=== PATIENT | male | born 1940 | race Caucasian/White ===

== ENCOUNTER 2016-09-18 13:37 | Outpatient (CLI) | payer MEDICARE | END 2016-09-18 13:38 | disposition home or self-care (01) | LOC: NC 13:37 | PROVIDERS: ATTEND Internal Medicine | DX: K44.9 Diaphragmatic hernia without obstruction or gangrene (principal); Z71.3 Dietary counseling and surveillance; K21.9 Gastro-esophageal reflux disease without esophagitis; N18.3 Chronic kidney disease, stage 3 (moderate); Z68.24 Body mass index [BMI] 24.0-24.9, adult ==

== ENCOUNTER 2016-09-18 21:00 | Emergency (ER) | payer MEDICARE ==
[2016-09-18] MEDS ORDERED: IOPAMIDOL 300 (61%) 150 ML VIAL IV ONE (21:01)
[2016-09-18] MEDS ORDERED: ONDANSETRON 4 MG/2ML 2 ML VIAL ONE (22:19)
[2016-09-18] MEDS ORDERED: SODIUM CHLORIDE 0.9% 1,000 ML ONE (22:19)
[2016-09-18] MEDS ORDERED: PANTOPRAZOLE SODIUM 40 MG VIAL IV ONE (22:38)
[2016-09-18] MEDS ORDERED: MORPHINE SULFATE 4 MG/ML SYRINGE ONE (22:38)
[2016-09-18 22:46] LABS: ABSOLUTE NEUTROPHIL COUNT 8.5 K/mm3 (1.8-7.7); BASO % 0.2 % (0.2-1.0); HEMATOCRIT 41.9 % (32.0-52.0); IMM NEUT% 0.3 % (0-1); LYMPH # 0.6 (1.0-4.8); LYMPH % 6.3 % (15-45); MEAN CELL VOLUME 89.3 fl (80.0-94.0); MEAN CORPUSCULAR HEMOGLOBIN 29.9 pg (27.0-31.0); MEAN CORPUSCULAR HGB CONC 33.4 g/dl (33.0-37.0); MEAN PLATELET VOLUME 10.1 fl (7.4-10.4); MONO # 0.6 (0.0-0.8); MONO % 5.7 % (4-12); NEUT % 87.5 % (43-75); PLATELET COUNT 275 K/mm3 (130-400); RED CELL DISTRIBUTION WIDTH 12.8 % (11.5-14.5); SPECIFIC GRAVITY 1.015 (1.001-1.030); URINE BILIRUBIN NEGATIVE (NEGATIVE); URINE BLOOD NEGATIVE (NEGATIVE); URINE GLUCOSE (UA) NEGATIVE (NEGATIVE); URINE LEUKOCYTE ESTERASE NEGATIVE (NEGATIVE); URINE NITRITE NEGATIVE (NEGATIVE); URINE PROTEIN 1+ (NEGATIVE); URINE UROBILINOGEN NORMAL (0-1 mg/dl)
[2016-09-18 22:51] LABS: URINE APPEARANCE SL CLOUDY; URINE COLOR DARK YELLOW
[2016-09-18 22:54] LABS: URINE RBC 0 /hpf
[2016-09-18 22:55] LABS: URINE AMORPHOUS SEDIMENT FEW; URINE BACTERIA 1+; URINE MUCUS 1+
[2016-09-18 23:00] LABS: ALB/GLOB RATIO 1.7 (>1.0); ALBUMIN 4.8 gm/dL (3.5-5.7); CALCIUM 10.5 mg/dL (8.6-10.3)
[2016-09-19] MEDS ORDERED: OXYMETAZOLINE HCL 0.05% 30 SPRAYS/BOT NS ONE (01:20)
[2016-09-19] MEDS ORDERED: LIDOCAINE 4% (PRES FREE) 5 ML AMP ONE (01:20)
[2016-09-19] MEDS ORDERED: SODIUM CHLORIDE 0.9% 1,000 ML ONE (02:01)
--- NOTE | 2016-09-19 08:07 | CT ---
CHEST ABDOMEN PELVIS CT WITH CONTRAST HISTORY: Abdominal pain and hiatal hernia. TECHNIQUE: Following the administration of 125 mL Isovue-300 intravenous contrast, contiguous axial images were acquired from the thoracic inlet to the ischial tuberosities. COMPARISON: Chest CT 08/28/2010. FINDINGS: THORAX LUNGS: No gross airspace abnormality. No pleural effusion. BARBARA AND MEDIASTINUM: No grossly enlarged lymph nodes. A right hilar lymph node measures 10 mm in size. There is moderate calcification of the coronary arteries with mixed plaque deposition of a nonectatic thoracic aorta. There is fluid identified within the distal esophagus with associated posterior mediastinal fluid. There is a complex left-sided paraesophageal hernia which primarily consists of the gastric body with associated wall enhancement, thickening, and fluid content. Associated obstruction is suspected. AXILLAE: No grossly enlarged lymph nodes. SUPRACLAVICULAR FOSSAE: No enlarged lymph nodes. ABDOMEN AND PELVIS LIVER AND SPLEEN: No focal lesion detected. ADRENAL GLANDS AND PANCREAS: Grossly unremarkable. KIDNEYS: 5 mm left renal cyst. No collecting system dilatation. GALLBLADDER: Present. BOWEL: Moderate fecal loading. Limited assessment of the distal colon due to decompression. Appendix is not seen. PELVIC ORGANS: No gross mass effect. FREE FLUID: No gross free fluid identified. ABDOMINOPELVIC LYMPH NODES: No abnormally enlarged lymph nodes identified. ABDOMINAL AORTA: Normal caliber. OSSEOUS STRUCTURES: Thoracolumbar disc degeneration with mild thoracic kyphosis. No dominant compression deformity. Osseous hemangioma of T12. Minor sclerosis along the left-sided pubis parasymphyseal region, possibly degenerative. Prominent canal stenosis at the L2-3 through L4-5 levels. IMPRESSION: 1. Worsening of paraesophageal hernia with associated fluid and wall thickening, findings worrisome for obstructive change. 2. Evidence of aortic and coronary artery atherosclerotic disease. 3. Noninflammatory, nonobstructive appearance of bowel. 4. Thoracic lumbar spondylosis, with canal stenosis at the L2-3 through L4-5 levels. Preliminary report relayed to the Emergency Medicine medical service by Dr. Corbett on 09/19/2016 at 0018 hours.
== END 2016-09-19 02:42 | disposition short-term general hospital (02) ==
LOC: ED 21:00
DX: K21.9 Gastro-esophageal reflux disease without esophagitis (principal); K44.0 Diaphragmatic hernia with obstruction, without gangrene; N17.9 Acute kidney failure, unspecified; R11.2 Nausea with vomiting, unspecified; Z71.3 Dietary counseling and surveillance
CPT/HCPCS: 83690; 85025; 87086; 80053; 81001; 74177; 71260; 96375; 99284; 96374; 96361; 97802; 99285; A9270; J2270; C9113; J2405; J7030 ×2; Q9967